=== PATIENT | male | born 2000 | race Caucasian/White ===

== ENCOUNTER 2024-12-03 03:05 | Emergency (ER) | payer SELFPAY ==
[~2024-12-03] VITALS: Ht 167.6 cm; Wt 65.0 kg
[2024-12-03 03:23] VITALS: O2SAT 100
[2024-12-03 03:42] VITALS: BP 126/79; PULSE 70; RESP 16; TEMP 98; O2SAT 99
== END 2024-12-03 04:49 | disposition left against medical advice (07) ==
LOC: ER 03:05
DX: R07.9 Chest pain, unspecified (principal); Z53.21 Procedure and treatment not carried out due to patient leaving prior to being seen by health care provider
CPT/HCPCS: 93005